=== PATIENT | female | born 1950 | race Caucasian/White ===

== ENCOUNTER 2016-07-02 10:20 | Day surgery (SDC) | payer OTHER ==
[2016-07-02] MEDS ORDERED: D5 LR 1000 ML 0 ML IV ONE (11:13)
[2016-07-02] MEDS ORDERED: D5 LR 1000 ML 1,000 ML IV ONE (11:23)
[2016-07-02] MEDS ORDERED: DIPRIVAN VIAL 20 ML ONE (13:14)
[2016-07-02 13:59] VITALS: BP 118/62
== END 2016-07-02 12:05 | disposition home or self-care (01) ==
LOC: SURG1 10:20
PROVIDERS: ATTEND Internal Medicine Gastroenterology
PROC: 0DJD8ZZ Inspection of Lower Intestinal Tract, Via Natural or Artificial Opening Endoscopic (ICD-10-PCS; principal; 2016-07-02 15:30)
PROC: 0DBH8ZX Excision of Cecum, Via Natural or Artificial Opening Endoscopic, Diagnostic (ICD-10-PCS; principal; 2016-07-02 15:30)
PROC: 0DBL8ZX Excision of Transverse Colon, Via Natural or Artificial Opening Endoscopic, Diagnostic (ICD-10-PCS; principal; 2016-07-02 15:30)
DX: Z12.11 Encounter for screening for malignant neoplasm of colon (principal); K57.30 Diverticulosis of large intestine without perforation or abscess without bleeding; K64.8 Other hemorrhoids
CPT/HCPCS: A4217; J3490; J7120